=== PATIENT | female | born 1995 | race American Indian/Alaskan Native ===

== ENCOUNTER 2020-01-12 23:23 | Emergency (ER) | payer MEDICAID ==
[2020-01-12 23:31] VITALS: BP 136/88
--- NOTE | 2020-01-13 01:27 | Emergency Department Report ---
Chief Complaint: Extremity Problem,Nontraumatic Stated Complaint: RT HAND FINGER PAIN Time Seen by Provider: 01/13/20 00:19 - HPI History of Present Illness: Patient is a 24-year-old female presents the emergency room with complaints of right ring finger pain that began 2 days ago. She states that she also feels like the finger is swollen. She denies any fall, injury, fever, increased warmth, erythema, weakness. She has not taken anything for the discomfort. She denies any past medical history or allergies to medications. on exam: non toxic appearing, no acute distress FROM of the right digits and hand, no erythema, there is no edema, no deformity, no joint laxity of the digits, brisk cap refill, neurovasculalry intact There has been no trauma, there is no need for emergent imaging There is no edema, no erythema, no increased warmth, no concern for gout or septic joint No signs of tenosynovitis Patient is presenting with a nonmedical emergency at this time Medical screening examination performed there is no threat to life or limb at this time Patient will be referred to a primary care doctor and orthopedic doctor Discussed symptomatic treatment with patient Discussed in detail with patient return precautions - Exam Vital Signs: Vital Signs 01/12/20 23:28 Temperature 98.3 F Pulse Rate 114 H Respiratory 12 Rate Blood Pressure 136/88 O2 Sat by Pulse 96 Oximetry MSE screening note: Focused history and physical exam performed. ED Disposition for MSE Clinical Impression: Finger pain, right Disposition: Z-07 MED SCREENING EXAM-LEFT Is pt being admited?: No Does the pt Need Aspirin: No Condition: Stable Instructions: Arthralgia (ED) Additional Instructions: May alternate Tylenol or ibuprofen as needed for discomfort. May use ice for 15 minutes at a time, rest. Follow-up with orthopedic doctor. Follow-up with a primary care doctor. Return to the emergency room for any new or worsening symptoms. Referrals: LEEANNA POPE MD [Staff Physician] - 2-3 Days [facility] [Provider Group] - 2-3 Days MIGUELITO CARD MD [Staff Physician] - 2-3 Days [facility] [Outside] - 2-3 Days [facility] [Outside] - 2-3 Days Time of Disposition: 01:26 Print Language: SUDANESE
== END 2020-01-13 01:46 | disposition left against medical advice (07) ==
LOC: ED 23:23
DX: M79.644 Pain in right finger(s) (principal)
CPT/HCPCS: 99282

== ENCOUNTER 2021-09-28 23:56 | Emergency (ER) | payer MEDICAID ==
[2021-09-29 00:15] VITALS: BP 142/87
[2021-09-29] MEDS ORDERED: IBUPROFEN 600 MG TAB PO NR (00:35)
[2021-09-29] MEDS ORDERED: ONDANSETRON 4 MG ODT TAB PO NR (00:35)
[2021-09-29] MEDS ORDERED: HYDROcodone/ACETAMINOPHEN 5-325 MG TAB PO ONE (00:35)
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
== END 2021-09-29 02:50 | disposition home or self-care (01) ==
LOC: ED 23:56
DX: S43.401A Unspecified sprain of right shoulder joint, initial encounter (principal); M62.838 Other muscle spasm; V89.2XXA Person injured in unspecified motor-vehicle accident, traffic, initial encounter; Y93.89 Activity, other specified; Y92.410 Unspecified street and highway as the place of occurrence of the external cause; Y99.8 Other external cause status
CPT/HCPCS: 72040; 99283; Q0162